=== PATIENT | female | born 1990 | race Caucasian/White ===

== ENCOUNTER 2024-10-19 01:57 | Outpatient (CLI) | payer BC, SELFPAY ==
[2024-10-19 10:40] LABS: Panorama Kit Sent via Fed Ex
[2024-10-19 10:50] LABS: Abs Immature Grans 0.03 10^3/uL (0.0-0.06); Absolute Basophil Count 0.01 10^3/uL (0.0-0.2); Absolute Eosinophil Count 0.01 10^3/uL (0.0-0.7); Absolute Lymphocyte Count 1.37 10^3/uL (1.2-3.4); Absolute Monocyte Count 0.46 10^3/uL (0.1-0.8); Absolute Neutrophil Count 6.51 10^3/uL (1.2-6.7); Basophils % 0.1 %; Eosinophils % 0.1 %; HCT 39.4 % (36.0-46.0); HGB 13.1 g/dL (11.2-15.7); Immature Grans % 0.4 %; Lymphocytes % 16.3 %; MCH 28.7 pg (27.0-33.0); MCHC 33.2 % (32.0-36.0); MCV 86 fL (80-95); MPV 10.1 fL (8.0-11.0); Monocytes % 5.5 %; Neutrophils % 77.6 %; Platelet Count 244 10^3/uL (130-400); RBC 4.57 10^6/uL (3.93-5.22); RDW 12.7 % (11.7-14.6); RDW-SD 39.4 fL; WBC 8.39 10^3/uL (4.4-10.8)
[2024-10-19 11:39] LABS: TSH (W/Ref FT4) 0.59 uIU/mL (0.36-3.74)
[2024-10-21 16:59] LABS: Thyrotropin Receptor Ab <1.10 IU/L
[2024-10-22 17:31] LABS: Specimen WB Whole Blood
[2024-11-04 18:29] LABS: Result Summary NEGATIVE; Specimen WB Whole Blood
== END 2024-10-19 01:58 | disposition home or self-care (01) ==
PROVIDERS: Advanced Practice Midwife; Visit Provider Student in an Organized Health Care Education/Training Program
DX: Z86.39 Personal history of other endocrine, nutritional and metabolic disease (principal); E89.0 Postprocedural hypothyroidism
CPT/HCPCS: 36415; 81220; 81222; 81329; 86850; 86900; 86901; 84235; 84443; 85025

== ENCOUNTER 2024-10-19 09:45 | Outpatient (REF) | payer BC, SELFPAY ==
--- NOTE | 2024-10-19 09:30 | PAPFT_PTH ---
PATIENT: Yuridia Martinez LOC: [facility] U#:[id number] AGE/SX: 34/F ROOM: RE10/19/[address]: Seema Bustamante : 1990 BED: DIS: 10/19/2024 SPEC #: [id number] RECD: 10/19/24 12:40 STATUS: RACHANA REQ #: [id number] ALEXANDRO: 10/19/24 09:[address]: Seema Bustamante DEPT: [facility] Cytology RECD BY: Jenn Jensen ENTERED: 10/19/24 12:40 SP TYPE: PAPFT OT DR: Unknown,Unknown Tissues: 1 - CX/ENDOCX FOR PAP SMEARS Procedures: PAP THIN PREP/UVM Screening HPV DNA PROBE Comments: [id number] (HPV 16 & 18/45)
[2024-10-19 11:12] LABS: *AMPHETAMINES SCREEN URINE Negative (Negative); *BARBITURATES SCREEN URINE Negative (Negative); *BENZODIAZEPINES SCREEN URINE Negative (Negative); Cannabinoids THC Negative (Negative); Cocaine Screen,Urine Negative (Negative); METHADONE URINE SCREEN Negative (Negative); OPIATES URINE SCREEN Negative (Negative); Tricyclic Antidepressants Negative (Negative)
[2024-10-23 11:40] LABS: Buprenorphine Negative ng/mL (Cutoff: 5.0); Norbuprenorphine Negative ng/mL (Cutoff: 2.5)
== END 2024-10-19 09:46 | disposition home or self-care (01) ==
LOC: LBN 09:45
PROVIDERS: Visit Provider Advanced Practice Midwife
DX: Z34.91 Encounter for supervision of normal pregnancy, unspecified, first trimester (principal)
CPT/HCPCS: 80307; 80348; 88142; 87086; 87624

== ENCOUNTER 2024-11-23 02:49 | Outpatient (CLI) | payer BC, SELFPAY ==
[2024-11-23 19:26] LABS: Lab Add On Test DONE
[2024-11-23 19:48] LABS: TSH (W/Ref FT4) 0.74 uIU/mL (0.36-3.74)
[2024-11-25 14:19] LABS: AFP 30.9 ng/mL; Cigarette smoking status non-Smoker; GA used in risk estimate Dates estimate; IVF Pregnancy Yes; Initial or repeat testing Initial testing; Insulin dependent diabetes No; Maternal Weight 170 lbs; Number of Fetuses 1; Physician Phone Number 802-748-7300; Prev Pregnancy w/NTD No; RECOMMENDED FOLLOW UP None.; Results Summary Normal risk
== END 2024-11-23 02:50 | disposition home or self-care (01) ==
LOC: LBO 02:49
PROVIDERS: Advanced Practice Midwife; Visit Provider Advanced Practice Midwife
DX: Z34.91 Encounter for supervision of normal pregnancy, unspecified, first trimester (principal); E05.00 Thyrotoxicosis with diffuse goiter without thyrotoxic crisis or storm
CPT/HCPCS: 36415; 82105; 84443

== ENCOUNTER 2024-12-25 13:29 | Outpatient (CLI) | payer BC, SELFPAY ==
[2024-12-25 15:06] LABS: TSH (W/Ref FT4) 0.31 uIU/mL (0.36-3.74)
[2024-12-25 15:25] LABS: FREE T4 1.33 ng/dL (0.76-1.46)
== END 2024-12-25 13:30 | disposition home or self-care (01) ==
LOC: LBO 13:29
PROVIDERS: Visit Provider Advanced Practice Midwife
DX: Z34.92 Encounter for supervision of normal pregnancy, unspecified, second trimester (principal); E05.00 Thyrotoxicosis with diffuse goiter without thyrotoxic crisis or storm
CPT/HCPCS: 36415; 84439; 84443

== ENCOUNTER 2025-01-22 01:42 | Outpatient (CLI) | payer BC, SELFPAY ==
[2025-01-22 14:39] LABS: TSH (W/Ref FT4) 0.25 uIU/mL (0.36-3.74)
[2025-01-22 15:02] LABS: FREE T4 1.23 ng/dL (0.76-1.46)
== END 2025-01-22 01:43 | disposition home or self-care (01) ==
LOC: LBO 01:42
PROVIDERS: Visit Provider Advanced Practice Midwife
DX: E05.00 Thyrotoxicosis with diffuse goiter without thyrotoxic crisis or storm (principal)
CPT/HCPCS: 36415; 84439; 84443

== ENCOUNTER 2025-02-12 01:42 | Outpatient (CLI) | payer BC, SELFPAY ==
[2025-02-12 14:01] LABS: HCT 34.5 % (36.0-46.0); HGB 11.5 g/dL (11.2-15.7); MCH 29.4 pg (27.0-33.0); MCHC 33.3 % (32.0-36.0); MCV 88 fL (80-95); MPV 9.8 fL (8.0-11.0); Platelet Count 278 10^3/uL (130-400); RBC 3.91 10^6/uL (3.93-5.22); RDW 12.4 % (11.7-14.6); RDW-SD 39.6 fL; WBC 9.78 10^3/uL (4.4-10.8)
[2025-02-12 14:18] LABS: Glucose,1 Hr (Glucola) 98 mg/dL (80-140)
[2025-02-12 14:33] LABS: TSH (W/Ref FT4) 0.67 uIU/mL (0.36-3.74)
== END 2025-02-12 01:43 | disposition home or self-care (01) ==
LOC: LBO 01:43
PROVIDERS: Visit Provider Advanced Practice Midwife
DX: E05.00 Thyrotoxicosis with diffuse goiter without thyrotoxic crisis or storm (principal); Z34.93 Encounter for supervision of normal pregnancy, unspecified, third trimester; Z3A.28 28 weeks gestation of pregnancy
CPT/HCPCS: 36415; 82950; 85027; 84443

== ENCOUNTER 2025-03-12 00:59 | Outpatient (CLI) | payer BC, SELFPAY ==
[2025-03-12 15:09] LABS: TSH (W/Ref FT4) 0.51 uIU/mL (0.36-3.74)
== END 2025-03-12 01:00 | disposition home or self-care (01) ==
LOC: LBO 00:59
PROVIDERS: Visit Provider Advanced Practice Midwife
DX: Z34.93 Encounter for supervision of normal pregnancy, unspecified, third trimester (principal)
CPT/HCPCS: 36415; 84443

== ENCOUNTER 2025-04-09 17:58 | Outpatient (REF) | payer BC, SELFPAY | END 2025-04-09 17:59 | disposition home or self-care (01) | LOC: LBN 17:58 | PROVIDERS: Visit Provider Advanced Practice Midwife | DX: Z34.93 Encounter for supervision of normal pregnancy, unspecified, third trimester (principal) | CPT/HCPCS: 87081 ==

== ENCOUNTER 2025-04-16 15:02 | Outpatient (CLI) | payer BC, SELFPAY ==
[2025-04-16 13:53] LABS: TSH (W/Ref FT4) 0.94 uIU/mL (0.36-3.74)
== END 2025-04-16 15:03 | disposition home or self-care (01) ==
LOC: LBO 15:02
PROVIDERS: Visit Provider Advanced Practice Midwife
DX: Z34.93 Encounter for supervision of normal pregnancy, unspecified, third trimester (principal); E05.00 Thyrotoxicosis with diffuse goiter without thyrotoxic crisis or storm
CPT/HCPCS: 36415; 84443

== ENCOUNTER 2025-04-30 13:29 | Outpatient (CLI) | payer BC, SELFPAY ==
[2025-04-30 13:35] VITALS: BP 120/71; PULSE 71; TEMP 37.2
[2025-04-30 13:51] VITALS: BP 120/71; PULSE 71
--- NOTE | 2025-04-30 15:12 | W.OBNST ---
Date of service: 04/30/25 Time of Service: 15:12 NST Evaluation Reason for NST Reasons for Nonstress Test: OTHER, SEE COMMENT Reason for NST Other: elevated B/P in office Gestational Age Gestational Age in Weeks and Days: 39 Weeks and 0Days Test and Monitor Explained Test/Monitor Explained: Test Explained, Monitor Explained and Patient Verbalized Understanding Vital Signs Blood Pressure: 120/71 Pulse: 71 Temperature: 99.0 F Weight: 193 lb NST Information Date on Monitor: 04/30/25 Time on Monitor: 13:27 Date off Monitor: 04/30/25 Time off Monitor: 14:05 Total Time on Monitor: 38 NST Interventions: None NST Evaluation Patient States Movement: Present FHR Baseline: 125 Variability: Moderate 6-25 bpm Accelerations: 15x15 Decelerations: None NST Results: Reactive Note Ultrasound Done: N/A. NST Note NST Reviewed and Verified by: Ghada Allred
[2025-04-30 15:13] VITALS: BP 120/71; PULSE 71; TEMP 37.2
== END 2025-04-30 14:10 ==
LOC: BCD 13:29 → OBS 13:34
PROVIDERS: Visit Provider Advanced Practice Midwife
DX: R03.0 Elevated blood-pressure reading, without diagnosis of hypertension (principal); Z3A.39 39 weeks gestation of pregnancy
CPT/HCPCS: 59025

== ENCOUNTER 2025-05-14 07:17 | Outpatient (CLI) | payer BC, SELFPAY ==
[2025-05-14 13:18] VITALS: BP 136/90; PULSE 78; TEMP 36.7
[2025-05-14 13:35] VITALS: BP 136/90; PULSE 78
[2025-05-14 13:44] VITALS: BP 133/73; PULSE 64
--- NOTE | 2025-05-14 20:55 | W.OBNST ---
Date of service: 05/14/25 Time of Service: 20:57 NST Evaluation Reason for NST Reasons for Nonstress Test: POSTDATES Gestational Age Gestational Age in Weeks and Days: 41 Weeks and 0Days Test and Monitor Explained Test/Monitor Explained: Test Explained, Monitor Explained and Patient Verbalized Understanding Vital Signs Blood Pressure: 136/90 Pulse: 78 Temperature: 98.1 F Weight: 193 lb NST Information Date on Monitor: 05/14/25 Time on Monitor: 13:20 Date off Monitor: 05/14/25 Time off Monitor: 13:46 Total Time on Monitor: 26 NST Interventions: PO Hydration NST Evaluation Patient States Movement: Present FHR Baseline: 135 Variability: Moderate 6-25 bpm Accelerations: 15x15 Decelerations: None NST Results: Reactive Note Ultrasound Done: N/A. NST Note Note: Yuridia is here for post dates testing. NST reactive. OK by Dr. Robison was 5.4. IOL discussed and Yuridia agrees. SVE - 0 /50/-1/post. She will return at 7 pm for cervical ripening., NST Reviewed and Verified by: Mary Jane Norris
[2025-05-14 20:58] VITALS: BP 136/90; PULSE 78; TEMP 36.7
--- NOTE | 2025-05-14 21:44 | W.OBNST ---
Date of service: 05/14/25 Time of Service: 21:46 NST Evaluation Reason for NST Reasons for Nonstress Test: POSTDATES Gestational Age Gestational Age in Weeks and Days: 41 Weeks and 0Days Test and Monitor Explained Test/Monitor Explained: Test Explained, Monitor Explained and Patient Verbalized Understanding Vital Signs Blood Pressure: 136/90 Pulse: 78 Temperature: 98.1 F Weight: 193 lb NST Information Date on Monitor: 05/14/25 Time on Monitor: 13:20 Date off Monitor: 05/14/25 Time off Monitor: 13:46 Total Time on Monitor: 26 NST Interventions: PO Hydration NST Evaluation Patient States Movement: Present FHR Baseline: 135 Variability: Moderate 6-25 bpm Accelerations: 15x15 Decelerations: None NST Results: Reactive Note Ultrasound Done: N/A. NST Note Note: Post dates testing. NST reactive. SVE 0/50/-1/post. Discussed IOL and Yuridia and her partner agree. She will return at 1900 for cervical ripening NST Reviewed and Verified by: Mary Jane Norris
[2025-05-14 21:46] VITALS: BP 136/90; PULSE 78; TEMP 36.7
== END 2025-05-14 14:48 | disposition other institution (70) ==
LOC: BCD 07:22 → OBS 13:12
PROVIDERS: Visit Provider Advanced Practice Midwife
DX: O48.0 Post-term pregnancy (principal); Z3A.41 41 weeks gestation of pregnancy
CPT/HCPCS: 59025

== ENCOUNTER 2025-05-14 18:11 | Inpatient (IN) | payer BC, SELFPAY ==
[2025-05-14 19:48] VITALS: PULSE 103; RESP 16; O2SAT 98
--- NOTE | 2025-05-14 20:41 | W.PM.OBHPL1 ---
Date of service: 05/14/25 Time of Service: 20:41 Assessment and Plan Assessment and plan (1) Encounter for induction of labor: Status: Acute Assessment and plan: Admit to Center and routine admission labs. Comfort measures. Dr. Robison is aware of admission. (2) Post-dates : Status: Acute Assessment and plan: Reactive NST. Will plan cervical ripening with misoprostol when staffing allows. rest with vistaril offered PRN. OB-HPI Labor/Delivery History of Present Illness Reason for Visit: post dates Chief Complaint: Scheduled Induction of Labor Indication for Induction: Post Date. CATARINO Calculator Estimated Delivery Date Method Current WG Current Estimate 05/07/25 Conception 41w 0d Other Estimates 04/23/25 LMP (Certain) 43w 0d 05/07/25 Ultrasound #2 41w 0d Comments: Yuridia had OK checked today by Dr. Robison and it was 5 cms. IOL offered and Yuridia and her partner wish to proceed. After her arrival, induction was not possible due to staffing on the unit and impending delivery. History of Present Expected Delivery Route/Plan - CNM FOB - Eleonora Medina (first child together) BB no circ Desires use of tub, unmedicated GBS POSITIVE- Prophylaxis discussed with Yuridia. Specific Issues/Plan 1. Infertility (unexplained), ICSI IVF 5-day embryo transfer at [facility] Repro, Baby ASA 12 wks, Level 2 @ [facility] 12/21 2. cfDNA low risk male, CF & SMA carrier negative, AFP- normal risk 3. 5- P + (due to mother's hx ETOH). Initial UDS negative; will not order 28 wk UDS as this is out of pocket 4. Grave's disease post thyroidectomy on Levo. TSH qtrimester. Initial TSH=0.59; 4a. 21 wks TSH=0.31 & Free T4=1.33 4b. [facility] Endo requests monthly- 01/22- TSH- 0.25, FT4 1.23 4c. 02/12- TSH 0.67, repeat at 32 weeks- 0.51 PFSH All Active Problems (Updated 05/14/25 @ 20:48 by Mary Jane Norris CNM) Post-dates (Acute) Encounter for induction of labor (Acute) (Acute) resulting from in-vitro fertilization (Acute) day 5 embryo transfer date 08/19/24 Graves disease (Acute) Medical History ASCUS with positive high risk HPV 2018 NIL 2019 Surgical History H/O thyroidectomy History of surgical procedure on mouth 2010 Family History (Updated 10/19/24 @ 09:03 by Seema Bustamante CNM) Mother No problems noted. 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) [employer] ([employer]) Pets and animals: Yes Pets and animals: dog(s) Sexually active: Yes Do you think of yourself as: straight/heterosexual Current gender identity: female What type of physical activity do you participate in: regular exercise Duration: 15-30 minutes/day Frequency: 3-4 times per week Special sarah needs: No Agree to transfusion: No Seatbelt use: always Do you feel safe at home: Yes Victim of physical abuse: No Victim of emotional abuse: No Female Reproductive History Menstrual Duration of menses: 6-7 days control method: none History History 1 Para 0 Hx # Term Pregnancies 0 Multiple births 0 Hx # Pregnancies 0 Ectopic pregnancies 0 AB induced 0 Hx Number of Living Children 0 AB spontaneous 0 Meds Allergies and Home Medications Allergies Allergy/AdvReac Type Severity Reaction Status Date / Time Opioids - Morphine Analogues AdvReac Nausea Verified 05/07/25 12:40 Home Medications ?Medication ?Instructions ?Recorded ?Confirmed ?Type prenat.vits,melisa,[id number] 1 tab PO DAILY 10/10/21 05/14/25 History cholecalciferol (vitamin D3) 25 25 mcg PO DAILY 10/19/24 05/14/25 History mcg (1,000 unit) capsule aspirin 81 mg tablet,delayed 162 mg (2 x 81 mg) PO DAILY #90 11/23/24 05/14/25 Rx release tabs levothyroxine 88 mcg tablet 163.4 mcg (1.8568 x 88 mcg) PO 02/12/25 05/14/25 Rx (Unithroid) DAILY #90 tabs calcium carbonate (Tums) 200 mg PO BID PRN 02/26/25 05/14/25 History loratadine 10 mg capsule (Allergy 10 mg PO DAILY PRN 02/26/25 05/14/25 History Relief (loratadine)) pyridoxine (vitamin B6) 50 mg 50 mg PO DAILY PRN 02/26/25 05/14/25 History tablet (Vitamin B-6) Exam Physical Exam Vital signs: Pulse Resp Pulse Ox 103 H 16 98 05/14/25 19:48 05/14/25 19:48 05/14/25 19:48 Vital Signs Reviewed: Yes Constitutional Constitutional: no acute distress Detailed Labor and Delivery Exam Dilation: 0 Effacement (%): 50 station: -1 Cervix position: posterior Consistency: soft Ontiveros Score: Cervical Points Exam 0 1 2 3 Dilation Closed 1-2cm 3-4 cm 5-6cm Effacement 0-30% 40-50% 60-70% 80% Consistency Firm Medium Soft Station -3 -2 -1,0 +1,+2 Position Posterior Mid Anterior Amniotic Membrane Status: Intact Monitor Mode: External Contraction Frequency(min): occasional Contraction Duration(sec): 60 Contraction Intensity: Mild Fetus A Heart Rate Baseline: 130 Monitor Accelerations: 15 X 15 Monitor Decelerations: None Variability: Moderate (6-25 BPM) Presentation: Cephalic Categories: Category I Est. Weight: 9 lb HEENT Exam HEENT Exam: Normal Respiratory Exam Respiratory Exam: Normal Cardiovascular Exam Cardiovascular Exam: Normal Abdominal Exam Abdominal Exam: Normal Exam Exam: Normal Extremities Exam Extremities Exam: Normal Skin Exam Skin Exam: Normal Psychiatric Exam Psychiatric Exam: Normal Risk Assessment Risk for Shoulder Dystocia Historical/Initial OB: NEGATIVE FOR: Pelvic Abnormality, Pre- BMI>30, Previous Shoulder Dystocia or Previous Macrosomia 36 Weeks: NEGATIVE FOR: Current Gestational DM, EFW>4500gms or Maternal Weight Gain>40lbs 40 Weeks: POSTIVE FOR: Post Dates; NEGATIVE FOR: EFW> 4500 gms or Maternal Weight Gain >40lb Delivery Plan @ 36wks: Risk for Pre-Eclampsia Date Initiated/Initials: 10/19/24 RG Yes, if one or more: NEGATIVE FOR: Hx Pre-E/Gest HTN, Chronic HTN, Multiple Gestation, Pre-gestational DM, Renal Disease, Systemic Lupus or APA Syndrome Yes, if 2 or more: POSITIVE FOR: Nulliparity; NEGATIVE FOR: Age>= 35 yrs, >10yr btwn pregnancies, BMI>30, ethinicty, Mother/Sister w/ Pre-E or Previous IUGR Risk for Post- Hemorrhage Initial: NEGATIVE FOR: Multiple Gestation, Previous PPH, Known Clotting Deficiency, Grand Multiparity or Anticoagulation 36 Weeks: NEGATIVE FOR: Anemia, hgb<10, Low platelets(thrombocytopenia), Gestational HTN or Pre-E, Polyhydraminios or EFW>4500gms 40 Weeks: NEGATIVE FOR: Anemia, hgb<10, Low platelets (thrombocytopenia), Gestation HTN or Pre-E, Polyhydraminios or EFW>4500gms At Risk?: No Counseled re: Active Management: Yes Risks Reviewed Risks Reviewed Upon Admission: Yes
[2025-05-14 21:23] LABS: HCT 34.1 % (36.0-46.0); HGB 11.6 g/dL (11.2-15.7); MCH 29.7 pg (27.0-33.0); MCHC 34.0 % (32.0-36.0); MCV 87 fL (80-95); MPV 10.5 fL (8.0-11.0); Platelet Count 217 10^3/uL (130-400); RBC 3.90 10^6/uL (3.93-5.22); RDW 13.0 % (11.7-14.6); RDW-SD 40.9 fL; WBC 13.36 10^3/uL (4.4-10.8)
[2025-05-15] VITALS (50 sets, daily range): BP systolic 114–140; BP diastolic 59–92; PULSE 0–123; RESP 16–18; TEMP 36.6–36.9; O2SAT 99
[2025-05-15] MEDS: hydrOXYzine PAMOATE 25 MG CAP 50 MG PO (01:55)
--- NOTE | 2025-05-15 03:06 | NUR.NOTE ---
Nursing Note: FHR and maternal vital signs only while awake per carlitos renteria CNM verbal.
[2025-05-15] MEDS: Levothyroxine 88 MCG TAB 176 MCG PO (08:02)
[2025-05-15] MEDS: miSOPROStol 25 MCG TAB VG ×2 (09:57→14:39)
--- NOTE | 2025-05-15 11:31 | W.PM.OBNL1 ---
Date of service: 05/15/25 Time of Service: 10:30 Informed Consent Informed Consent: Induction of Labor and Risk,Benefits,Alternatives Discussed Contractions Monitor Mode: External Contraction Frequency(min): 5 Contraction Duration(sec): 45-60 Intensity: Mild Fetus A Monitor: External (US) Heart Rate Baseline: 135 Presentation: Cephalic Variability: Moderate (6-25 BPM) Categories: Category I FHR Rhythm: Regular Accelerations: 15 X 15 Decelerations: None Amniotic Membrane Status: Intact Assessment and Plan Assessment and plan (1) Encounter for induction of labor: Start date: 05/15/25 Start time: 10:00 Status: Acute Assessment and plan: # 35-year-old at 41+0 here for IOL iso IVF . Admission H/H 11.6/34. VSS. # Labor: IOL deferred last night 2/2 unit census. Discussed IOL methods, answered all questions. Patient amenable to starting with Miso. Dose #1 placed at 10:00. Will consider CRB with dose of next Miso. # Fetus: Cat 1 # Pain: Patient desires unmedicated , hydrotherapy. Open to epidural if needed. Will move to Room 300 once available. # Problems: - GBS+: PCN PPx with CRB or active labor - Hyperthyroidism: TSH stable throughout . # Back-up MD Robison aware of patient on the unit. # Anticipate . (2) resulting from in-vitro fertilization: Status: Acute (3) Graves disease: Status: Acute (4) GBS (group B Streptococcus carrier), +RV culture, currently : Status: Acute Objective Abnormal lab results 05/14/25 Range/Units 21:10 WBC 13.36 H (4.4-10.8) 10^3/uL RBC 3.90 L (3.93-5.22) 10^6/uL Hct 34.1 L (36.0-46.0) % Temp Pulse Resp BP Pulse Ox 97.9 F 78 16 114/82 98 05/15/25 01:05 05/15/25 08:04 05/15/25 01:05 05/15/25 08:04 05/14/25 19:48 Laboratory Results WBC 13.36 10^3/uL (4.4-10.8) H 05/14/25 21:10 RBC 3.90 10^6/uL (3.93-5.22) L 05/14/25 21:10 Hgb 11.6 g/dL (11.2-15.7) 05/14/25 21:10 Hct 34.1 % (36.0-46.0) L 05/14/25 21:10 MCV 87 fL (80-95) 05/14/25 21:10 MCH 29.7 pg (27.0-33.0) 05/14/25 21:10 MCHC 34.0 % (32.0-36.0) 05/14/25 21:10 RDW 13.0 % (11.7-14.6) 05/14/25 21:10 Plt Count 217 10^3/uL (130-400) 05/14/25 21:10 MPV 10.5 fL (8.0-11.0) 05/14/25 21:10 ABO/Rh O Positive 05/14/25 21:10 Antibody Screen NEGATIVE 05/14/25 21:10 Vital Signs Reviewed: Yes Subjective Patient Reports: No new Complaints Interval history since last seen: Yuridia is a 35-year-old at 41+1 admitted for induction of labor iso late-term . is otherwise complicated by hyperthyroidism, s/p thyroidectomy and positive GBS status. She is supported by her Eleonora. She was admitted on 05/14 for ripening, which was deferred due to unit census. She was able to get some rest with Vistaril. Yuridia is amenable to starting Misoprostol this morning after breakfast. She is feeling in her usual state of health. Denies contractions, VB, or LOF. Endorses normal movement. Per Dr. Robison, cervix yesterday was . Interventions Induction Indication: Post Date, Type of Induction: Misoprostol administration: Vaginal, Results Hemoglobin/Hematocrit: Hgb 11.6 g/dL (11.2-15.7) 05/14/25 21:10 Hct 34.1 % (36.0-46.0) L 05/14/25 21:10 Abnormal Lab Findings: Abnormal Labs 05/14/25 21:10 WBC 13.36 H RBC 3.90 L Hct 34.1 L
--- NOTE | 2025-05-15 14:42 | W.PM.OBNL1 ---
Date of service: 05/15/25 Time of Service: 14:52 Informed Consent Informed Consent: Induction of Labor and Risk,Benefits,Alternatives Discussed Pelvic Exam Dilation: 1 Effacement (%): 50 station: -2 Cervix Position: mid Consistency: medium Vaginal Exam Presentation: Cephalic Contractions Monitor Mode: External Contraction Frequency(min): 3 Contraction Duration(sec): 60 Intensity: Mild Fetus A Monitor: External (US) Heart Rate Baseline: 135 Presentation: Cephalic Variability: Moderate (6-25 BPM) Categories: Category I FHR Rhythm: Regular Characteristics: Normal Accelerations: 15 X 15 Decelerations: None Assessment and Plan Assessment and plan (1) Encounter for induction of labor: Status: Acute Assessment and plan: # Labor: Pt undergoing cervical ripening, now s/p 2nd dose Miso at 14:30. Cervix now 1/50/-2, compared to 0/50/posterior yesterday. Reviewed with patient that CRB placement would be easily done at this point and it was decided that at the time of next Miso dose, another SVE would be done; if still 1 cm, will opt for CRB to be placed at that time. # Fetus: Cat 1 # Pain: Coping well with cramping. # GBS+: PCN with CRB or active labor. # Anticipate (2) Post-dates : Status: Acute (3) GBS (group B Streptococcus carrier), +RV culture, currently : Status: Acute (4) resulting from in-vitro fertilization: Status: Acute (5) Graves disease: Status: Acute Objective Abnormal lab results 05/14/25 Range/Units 21:10 WBC 13.36 H (4.4-10.8) 10^3/uL RBC 3.90 L (3.93-5.22) 10^6/uL Hct 34.1 L (36.0-46.0) % Temp Pulse Resp BP Pulse Ox 97.9 F 80 16 123/78 98 05/15/25 01:05 05/15/25 13:45 05/15/25 01:05 05/15/25 13:45 05/14/25 19:48 Laboratory Results WBC 13.36 10^3/uL (4.4-10.8) H 05/14/25 21:10 RBC 3.90 10^6/uL (3.93-5.22) L 09/12/25 21:10 Hgb 11.6 g/dL (11.2-15.7) 05/14/25 21:10 Hct 34.1 % (36.0-46.0) L 05/14/25 21:10 MCV 87 fL (80-95) 05/14/25 21:10 MCH 29.7 pg (27.0-33.0) 05/14/25 21:10 MCHC 34.0 % (32.0-36.0) 05/14/25 21:10 RDW 13.0 % (11.7-14.6) 05/14/25 21:10 Plt Count 217 10^3/uL (130-400) 05/14/25 21:10 MPV 10.5 fL (8.0-11.0) 05/14/25 21:10 ABO/Rh O Positive 05/14/25 21:10 Antibody Screen NEGATIVE 05/14/25 21:10 Vital Signs Reviewed: Yes Subjective Patient Reports: New Complaints Interval history since last seen: Since placement of the first dose of Miso, Yuridia has been feeling more cramping. Eleonora supportive at bedside. Interventions Induction Indication: Post Date, Type of Induction: Misoprostol administration: Vaginal and Cervical Ripening, Results Hemoglobin/Hematocrit: Hgb 11.6 g/dL (11.2-15.7) 05/14/25 21:10 Hct 34.1 % (36.0-46.0) L 05/14/25 21:10 Abnormal Lab Findings: Abnormal Labs 05/14/25 21:10 WBC 13.36 H RBC 3.90 L Hct 34.1 L
--- NOTE | 2025-05-15 18:48 | W.PM.OBNL1 ---
Date of service: 05/15/25 Time of Service: 18:39 Informed Consent Informed Consent: Induction of Labor and Risk,Benefits,Alternatives Discussed Pelvic Exam Dilation: 1 Effacement (%): 90 station: -2 Cervix Position: mid Consistency: soft Vaginal Exam Presentation: Cephalic Nitrazine: Positive Contractions Monitor Mode: External Contraction Frequency(min): 2-4 Contraction Duration(sec): 50-80 Intensity: Mild/Moderate Fetus A Monitor: External (US) Heart Rate Baseline: 135 Presentation: Cephalic Variability: Moderate (6-25 BPM) Categories: Category I FHR Rhythm: Regular Characteristics: Normal Accelerations: 15 X 15 Decelerations: None Amniotic Membrane Status: Ruptured Assessment and Plan Assessment and plan (1) Amniotic fluid leaking: Start date: 05/15/25 Status: Acute (2) Encounter for induction of labor: Status: Acute Assessment and plan: - 35-year-old at 41+1 here for IOL, making cervical change. - Labor: s/p 2 doses PV Miso, SROM to pink-tinged fluid around 17:[address] IV and initiate Pitocin. Titrate per unit protocol. - Pain: Well-managed using own inner resources - Fetus: Cat 1 - GBS+ with confirmation of SROM: Will place IV now and initiate PCN ppx. - IVF : Caution in 3rd stage with delivery of the placenta - Anticipate tomorrow morning. (3) Post-dates : Status: Acute (4) GBS (group B Streptococcus carrier), +RV culture, currently : Status: Acute (5) resulting from in-vitro fertilization: Status: Acute Objective Abnormal lab results 05/14/25 Range/Units 21:10 WBC 13.36 H (4.4-10.8) 10^3/uL RBC 3.90 L (3.93-5.22) 10^6/uL Hct 34.1 L (36.0-46.0) % Temp Pulse Resp BP Pulse Ox 97.9 F 66 16 133/84 98 05/15/25 18:20 05/15/25 18:20 05/15/25 18:20 05/15/25 18:20 05/14/25 19:48 Laboratory Results WBC 13.36 10^3/uL (4.4-10.8) H 05/14/25 21:10 RBC 3.90 10^6/uL (3.93-5.22) L 05/14/25 21:10 Hgb 11.6 g/dL (11.2-15.7) 05/14/25 21:10 Hct 34.1 % (36.0-46.0) L 05/14/25 21:10 MCV 87 fL (80-95) 05/14/25 21:10 MCH 29.7 pg (27.0-33.0) 05/14/25 21:10 MCHC 34.0 % (32.0-36.0) 05/14/25 21:10 RDW 13.0 % (11.7-14.6) 05/14/25 21:10 Plt Count 217 10^3/uL (130-400) 05/14/25 21:10 MPV 10.5 fL (8.0-11.0) 05/14/25 21:10 ABO/Rh O Positive 05/14/25 21:10 Antibody Screen NEGATIVE 05/14/25 21:10 Vital Signs Reviewed: Yes Subjective Patient Reports: New Complaints Interval history since last seen: Yuridia reports contractions have been getting stronger. Reports she heard a pop around 5:35 p.m., sometime thereafter she started to notice some trickling. Interventions Induction Indication: Post Date, Type of Induction: Misoprostol administration: Vaginal, Pitocin and Cervical Ripening, Results Hemoglobin/Hematocrit: Hgb 11.6 g/dL (11.2-15.7) 05/14/25 21:10 Hct 34.1 % (36.0-46.0) L 05/14/25 21:10 Abnormal Lab Findings: Abnormal Labs 05/14/25 21:10 WBC 13.36 H RBC 3.90 L Hct 34.1 L
[2025-05-15] MEDS: Penicillin G POT. 5,000,000 UNITS in Normal Saline 100 ML 200 UNITS IVPB (21:00)
[2025-05-15] MEDS: Lactated Ringers 1,000 ML 125 ML IV (21:00)
--- NOTE | 2025-05-15 22:47 | W.PM.OBNL1 ---
Date of service: 05/15/25 Time of Service: 22:47 Informed Consent Informed Consent: Induction of Labor and Risk,Benefits,Alternatives Discussed Pelvic Exam Dilation: 8 Effacement (%): 100 station: -1 Cervix Position: anterior Consistency: soft Vaginal Exam Presentation: Cephalic Nitrazine: Positive Contractions Monitor Mode: External Contraction Frequency(min): 2-4 Contraction Duration(sec): 50-80 Intensity: Moderate/Strong Fetus A Monitor: External (US) Heart Rate Baseline: 145 Presentation: Cephalic Variability: Moderate (6-25 BPM) Categories: Category I FHR Rhythm: Regular Characteristics: Normal Accelerations: 15 X 15 Decelerations: None Assessment and Plan Assessment and plan (1) Encounter for induction of labor: Status: Acute Assessment and plan: - 35-year-old at 41+1 here for IOL, in active labor. - Labor: s/p 2 doses PV Miso, SROM x 5 hours. Pitocin not initiated as patient entered active labor after 2nd dose of Miso & SROM alone. - Pain: Well-managed using her own inner resources. Supported by Eleonora. Patient considering getting into the tub. - Fetus: Cat 1 - GBS+ with confirmation of SROM: s/p 1 dose PCN. Of note, SROM confirmed just prior to change of shift. Initiation of abx delayed for this and that ultrasound was needed for IV placement. - IVF : Caution in 3rd stage with delivery of the placenta - Anticipate tomorrow morning. (2) Post-dates : Status: Acute (3) GBS (group B Streptococcus carrier), +RV culture, currently : Status: Acute (4) Amniotic fluid leaking: Status: Acute Objective Temp Pulse Resp BP Pulse Ox 98.2 F 78 18 127/84 99 05/15/25 20:00 05/15/25 22:43 05/15/25 20:00 05/15/25 20:00 05/15/25 20:00 Laboratory Results WBC 13.36 10^3/uL (4.4-10.8) H 05/14/25 21:10 RBC 3.90 10^6/uL (3.93-5.22) L 05/14/25 21:10 Hgb 11.6 g/dL (11.2-15.7) 05/14/25 21:10 Hct 34.1 % (36.0-46.0) L 05/14/25 21:10 MCV 87 fL (80-95) 05/14/25 21:10 MCH 29.7 pg (27.0-33.0) 05/14/25 21:10 MCHC 34.0 % (32.0-36.0) 05/14/25 21:10 RDW 13.0 % (11.7-14.6) 05/14/25 21:10 Plt Count 217 10^3/uL (130-400) 05/14/25 21:10 MPV 10.5 fL (8.0-11.0) 05/14/25 21:10 ABO/Rh O Positive 05/14/25 21:10 Antibody Screen NEGATIVE 05/14/25 21:10 Vital Signs Reviewed: Yes Subjective Patient Reports: New Complaints Interval history since last seen: Yuridia reports contractions continue to intensify, has been having lots of bloody show. Trying many positions. Interventions Pain Management Interventions: Coping Well, No Interventions needed and Comfort Measures. Results Hemoglobin/Hematocrit: Hgb 11.6 g/dL (11.2-15.7) 05/14/25 21:10 Hct 34.1 % (36.0-46.0) L 05/14/25 21:10 Abnormal Lab Findings: Abnormal Labs 05/14/25 21:10 WBC 13.36 H RBC 3.90 L Hct 34.1 L
[2025-05-16] VITALS (66 sets, daily range): BP systolic 111–167; BP diastolic 55–85; PULSE 0–147; RESP 14–18; TEMP 36.8–37.8; O2SAT 97–98
[2025-05-16] MEDS: Methylergonovine 0.2 MG/ML VIAL ×2 (03:35→06:31)
[2025-05-16] MEDS: Lidocaine 1% Multi-Dose 20 ML VIAL IJ (03:50)
[2025-05-16] MEDS: miSOPROStol 200 MCG TAB 800 MCG SL (04:00)
[2025-05-16] MEDS: Lidocaine 2% Jelly 6 ML SYR (04:00)
--- NOTE | 2025-05-16 04:10 | OBCE_ITS ---
Date of service: 05/16/25 Time of Service: 04:10 Assessment and Plan Assessment and plan (1) Third degree laceration of perineum, type 3a: Status: Acute History of Present Illness History of Present Illness Chief Complaint: Evaluation of perineal laceration, postdelivery Narrative: Kindly asked to see this patient by Dimple Leavitt CNM. Patient was status postnormal spontaneous vaginal after labor induction at 41 weeks and 1 day. Indications for delivery were post dates and assisted reproductive technology. She had a normal spontaneous vaginal with viable male infant visually, large for gestational age. She said that. She was noted to have a midline laceration. On examination, her perineal laceration was noted to start at the mid portion of the posterior aspect of the vagina and extends through the perineum. There was extension of the anterior portion of the rectal sphincter so ultimately stage IIIa perineal laceration. Patient also had a slight increase in vaginal bleeding throughout the postdelivery phase. During the process, she received Pitocin at the subsequent bolus. She had Methergine delivered IM, fundal massage, misoprostol, 800 mcg placed rectally. Once bleeding was under better control, repair of her vaginal laceration was performed. She had received topical lidocaine, followed by 1% lidocaine by injection. 3-0 Vicryl was used to reapproximate ends bolstering the anterior portion of the rectus muscle. The remainder of the repair was performed in usual fashion with repair of the vaginal mucosa followed by the deeper perineal spaces, followed by perineal mucosa. During placement of the nasal Postel, with rectal examination, sphincter and vaginal mucosa is intact. Repair achieved hemostasis, and appropriate structural and cosmetic result. All findings were discussed with the patient, and her . Subsequent instructions and care will be provided by our midwives and nursing staff. Patient did have almost 1500 cc. See delivery note for the remainder of her care. Consults Consult date: 05/16/25 Requesting physician: Dimple Leavitt [facility] All Active Problems (Updated 05/16/25 @ 04:21 by Sparkle Robison DO) Third degree laceration of perineum, type 3a (Acute) Repaired, usual fashion, Appropriate hemostasis and cosmetic effect. 05/16/25 Amniotic fluid leaking (Acute) GBS (group B Streptococcus carrier), +RV culture, currently (Acute) Post-dates (Acute) Encounter for induction of labor (Acute) (Acute) resulting from in-vitro fertilization (Acute) day 5 embryo transfer date 08/19/24 Graves disease (Acute) Medical History ASCUS with positive high risk HPV 2018 NIL 2019 Surgical History H/O thyroidectomy History of surgical procedure on mouth 2010 Family History (Updated 10/19/24 @ 09:03 by Seema Bustamante CNM) Mother No problems noted. 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) [employer] ([employer]) Pets and animals: Yes Pets and animals: dog(s) Sexually active: Yes Do you think of yourself as: straight/heterosexual Current gender identity: female What type of physical activity do you participate in: regular exercise Duration: 15-30 minutes/day Frequency: 3-4 times per week Special sarah needs: No Agree to transfusion: No Seatbelt use: always Do you feel safe at home: Yes Victim of physical abuse: No Victim of emotional abuse: No Female Reproductive History Menstrual Duration of menses: 6-7 days control method: none History History 2 1 Para 0 Hx # Term Pregnancies 0 Multiple births 0 Hx # Pregnancies 0 Ectopic pregnancies 0 AB induced 0 Hx Number of Living Children 0 AB spontaneous 0 Results Last Vital Signs Temp 98.2 F 05/15/25 20:00 Pulse 103 H 05/16/25 04:08 Resp 18 05/15/25 20:00 BP 155/81 H 05/16/25 04:08 Pulse Ox 99 05/15/25 20:00 Labs 05/14/25 21:10
--- NOTE | 2025-05-16 04:19 | OBVDS_ITS ---
Date of service: 05/16/25 Time of Service: 04:20 OB Labor/ Delivery Information Baby A Delivery Delivery Method: Spontaneaous Presentation: Cephalic Cephalic Position: Vertex Vertex Position: Left Occipital Anterior Breech Position: N/A Cord Description-Baby A: 3 Vessels Cord Description Comment: Eccentric cord insertion Amniotic Fluid: Clear Quantitative Blood Loss: 1500 Delivery Outcome: Liveborn Infant Transferred: Remains with Mother Providers Doctor: Sparkle Robison Nurse Geophysical Prospector: Dimple Leavitt Specimen Processor: Daphne Kang Nurse: Anila Verdugo Nurse: Mariah Simpson Labor/Delivery Information Number of Babies in Womb: 1 Group Beta Strep: Positive Antibiotics Administered: Yes Number of Doses of Antibiotics: 2 Rubella Status: Immune Blood Type: O+ Varicella Immunity: Immune Maternal Complications: None Shoulder Dystocia: No Note: Yuridia is a 35-year-old G1 now P1001 who presented to the Center on 05/14 for IOL iso late-term . complicated by IVF , Hx of Graves Disease, and GBS+ status. She slept overnight while awaiting for improvement of the unit census. On 05/15, she received 2 doses of Misoprostol PV, had SROM to clear fluid and then progressed on her own to complete dilation on 05/16. She received adequate GBS prophylaxis prior to initiation of the 2nd stage. Initially, she pushed in the tub, however contractions spaced. She moved from the tub to the bed. Contractions continued to be spaced and Pitocin was initiated, titrated to a max dose of 8 mU/min. Using her own inner resources and Nitrous Oxide at times, she achieved the delivery of a viable male Loic. Nuchal x 1 reduced at the perineum. Transverse shoulders were a tight squeeze, however without dystocia. No meconium. Overall Cat 1 tracing throughout first and second stages. The stunned was brought to maternal chest where he transitioned with drying and stimulation. APGARS 6/8. Delayed cord clamping was purposefully performed, clamped x 2 by the CNM and cut by the FOBEleonora. The placenta delivered easily, appeared intact with 3VC. The vagina and perineum were inspected and a deep midline sulcal and perineal lacerations were noted. Dr. Sparkle Robison was already in-house and was asked to come to the bedside for evaluation. 3a lac identified and lacerations were repaired with 3-[address] Robison. Additionally, Yuridia had uterine atony and was given double strength Pitocin, Methergine and 800 mcg Misoprostol ME. Pt had I/O cath for 450 mL urine (see Dr. Robison's consult note). Fundus was firm with multiple uterotonics, I/O cath, and massage. QBL 1,500. Pt later had additional 135 mL of bleeding noted on Chux and patient was also given TXA. Mother and baby to recover together. Stages of Labor Onset of Labor Date: 05/15/25 Complete Dilatation Date: 05/16/25 Complete Dilatation Time: 00:10 ROM Baby A: 05/15/25 ROM Baby A: 17:35 Delivery Date-Baby A: 05/16/25 Placenta Delivery Date-Baby A: 05/16/25 Placenta Cultured: No Placenta Status: Delivered Placenta Status: Delivered Baby A Infant Gender: Male Gestational Status: Term (39-41.6 wks) weight: 9 lb 13.3 oz Procedure Procedures: Control of Hemorrhage Interventions Oxygen , Indication: Late-term ./ Pain Management/ Induction Indication: Post Date, Type of Induction: Misoprostol administration: Vaginal, Pitocin and Cervical Ripening,/ Repair of Laceration Hemorrrhage Note Labs Drawn Labs Drawn: No
[2025-05-16] MEDS: TRANEXAMIC ACID/SOD. CHL. 1,000 MG/100 ML BAG 600 MG IVPB (05:05)
[2025-05-16] MEDS: Oxytocin/Normal Saline 30 UNIT/500 ML BAG 95 UNITS IV (05:20)
[2025-05-16] MEDS: Acetaminophen 325 MG TAB 650 MG PO ×2 (06:34→12:10)
[2025-05-16] MEDS: Ibuprofen 600 MG TAB PO (06:35)
[2025-05-16 07:09] LABS: HCT 32.1 % (36.0-46.0); HGB 10.9 g/dL (11.2-15.7); MCH 29.5 pg (27.0-33.0); MCHC 34.0 % (32.0-36.0); MCV 87 fL (80-95); MPV 10.5 fL (8.0-11.0); Platelet Count 210 10^3/uL (130-400); RBC 3.69 10^6/uL (3.93-5.22); RDW 12.7 % (11.7-14.6); RDW-SD 40.0 fL
[2025-05-16 07:25] LABS: WBC 25.24 10^3/uL (4.4-10.8)
[2025-05-16] MEDS: Lactated Ringers 1,000 ML 125 ML IV (10:07)
[2025-05-16] MEDS: miSOPROStol 200 MCG TAB 600 MCG SL ×2 (11:26→20:56)
--- NOTE | 2025-05-16 12:37 | W.PM.OBPNV1 ---
Date of service: 05/16/25 Time of Service: 12:37 Assessment and Plan Assessment and plan (1) Third degree laceration of perineum, type 3a: Status: Acute Assessment and plan: Pain relief is adequate. Consider sitz bath PRN after 24 hours. (2) History of hemorrhage: Status: Acute Assessment and plan: CBC with differential this evening (3) Term of male : Status: Acute Assessment and plan: Routine post care. Will continue to assess patient's status (4) Graves disease: Status: Acute Assessment and plan: Dose of levothyroxine decreased to 132 mcg daily per patient's request. This was advised by her photoengraving sketch maker. Subjective Subjective Interval history: status post hemorrhage. Yuridia has been resting and she took a nap this morning. She has been getting up to void hourly while awake and has been voiding without difficulty and is asymptomatic from blood loss. Bleeding is WNL, IV of LR 125 cc is infusing. is going well. Patient comments: No complaints Patient's Mood: good baby status: Doing well feeding status: Exclusively breast feeding Exam Physical Exam Vital signs: Temp Pulse Resp BP Pulse Ox 100.0 F H 89 14 131/71 98 05/16/25 12:00 05/16/25 12:00 05/16/25 12:00 05/16/25 12:00 05/16/25 07:45 Vital Signs Reviewed: Yes Constitutional Constitutional: no acute distress HEENT Exam HEENT Exam: Normal Respiratory Exam Respiratory Exam: Normal Cardiovascular Exam Cardiovascular Exam: Normal Extremities Exam Extremity Exam: Normal Skin Exam Skin Exam: Normal Psychiatric Exam Psychiatric Exam: Normal Results Hemoglobin/Hematocrit: Hgb 10.9 g/dL (11.2-15.7) L 05/16/25 07:00 Hct 32.1 % (36.0-46.0) L 05/16/25 07:00 Abnormal Lab Findings: Abnormal Labs 05/14/25 05/16/25 21:10 07:00 WBC 13.36 H 25.24 H* RBC 3.90 L 3.69 L Hgb 10.9 L Hct 34.1 L 32.1 L Hemorrrhage Note Labs Drawn Labs Drawn: No
[2025-05-16] MEDS: Dibucaine 1% 28 GM TUBE TP (17:41)
[2025-05-16] MEDS: Hamamelis Leaf/Glycerin 100 EACH BOX PR (17:42)
[2025-05-16 18:13] LABS: Abs Immature Grans 0.09 10^3/uL (0.0-0.06); HCT 24.7 % (36.0-46.0); HGB 8.5 g/dL (11.2-15.7); Immature Grans % 0.6 %; MCH 30.1 pg (27.0-33.0); MCHC 34.4 % (32.0-36.0); MCV 88 fL (80-95); MPV 10.4 fL (8.0-11.0); Platelet Count 192 10^3/uL (130-400); RBC 2.82 10^6/uL (3.93-5.22); RDW 12.9 % (11.7-14.6); RDW-SD 41.0 fL; WBC 15.75 10^3/uL (4.4-10.8)
[2025-05-16] MEDS: Docusate Sodium 100 MG CAP PO (20:56)
[2025-05-17 02:05] VITALS: BP 111/70; PULSE 79; RESP 18; TEMP 37.2
[2025-05-17 05:51] VITALS: BP 112/66; PULSE 85; RESP 18; TEMP 36.8
[2025-05-17] MEDS: Levothyroxine 88 MCG TAB 132 MCG PO (06:25)
[2025-05-17 06:59] LABS: Abs Immature Grans 0.08 10^3/uL (0.0-0.06); HCT 25.6 % (36.0-46.0); HGB 8.7 g/dL (11.2-15.7); Immature Grans % 0.6 %; MCH 30.6 pg (27.0-33.0); MCHC 34.0 % (32.0-36.0); MCV 90 fL (80-95); MPV 10.4 fL (8.0-11.0); Platelet Count 187 10^3/uL (130-400); RBC 2.84 10^6/uL (3.93-5.22); RDW 13.2 % (11.7-14.6); RDW-SD 43.1 fL; WBC 13.68 10^3/uL (4.4-10.8)
[2025-05-17] MEDS: Ibuprofen 600 MG TAB PO (08:21)
[2025-05-17] MEDS: Acetaminophen 325 MG TAB 650 MG PO (08:21)
[2025-05-17] MEDS: Docusate Sodium 100 MG CAP PO (08:21)
[2025-05-17 08:42] VITALS: BP 120/75; PULSE 65; RESP 18; TEMP 36.8; O2SAT 98
--- NOTE | 2025-05-17 10:13 | W.PM.OBPNV1 ---
Date of service: 05/17/25 Time of Service: 10:13 Assessment and Plan Assessment and plan (1) History of hemorrhage: Status: Acute Assessment and plan: Denies dizziness, resting pulse <100 (2) Third degree laceration of perineum, type 3a: Status: Acute Assessment and plan: intact, healing well (3) Term of male : Status: Acute Assessment and plan: A: PPD#1, nml recovery Hgb 8.7 this morning, WBC 13.68 Afebrile and resting pulse 70-80 well, processing experience P: Pt desires discharge to home today Recovery from lacerations and PPH/anemia discussed in detail Written instructions reviewed and given to pt Discussed non-hormonal BCM, pt undecided Will take iron supplement and consume iron & fiber rich foods, rest AMAP F/up in 2 & 6 wks , will check hgb in 2 wks Subjective Subjective Patient comments: No complaints, Pain well controlled, Tolerating diet and Bowel Movement Patient's Mood: happy baby status: Doing well, Nursing well and Rooming in [place] feeding status: Exclusively breast feeding Exam Physical Exam Vital signs: Temp Pulse Resp BP Pulse Ox 98.2 F 65 18 120/75 98 05/17/25 08:42 05/17/25 08:42 05/17/25 08:42 05/17/25 08:42 05/17/25 08:42 Vital Signs Reviewed: Yes Constitutional Constitutional: no acute distress, average body habitus and cooperative HEENT Exam HEENT Exam: Normal Neck Exam Neck Exam: Normal Breast Exam Bilateral: Breast Exam: Normal and Soft Nipple Exam: Normal and Uninjured Respiratory Exam Respiratory Exam: Normal Cardiovascular Exam Cardiovascular Exam: Normal Abdominal Exam Abdomen: Other (soft and nontender) Fundal Exam Fundus: Below Umbilicus and Firm Rectal Exam Rectal Exam: Hemmorhoids Exam Perineum: Edematous and Repair Intact Extremities Exam Extremity Exam: Normal, Full ROM and Warm to Touch Back/Spine/Pelvis Exam Back Exam: Normal Skin Exam Skin Exam: Normal Neurological Exam Neurological Exam: Normal Psychiatric Exam Psychiatric Exam: Normal Results Abnormal Lab Findings: Abnormal Labs 05/14/25 05/16/25 05/16/25 21:10 07:00 18:00 WBC 13.36 H 25.24 H* 15.75 H RBC 3.90 L 3.69 L 2.82 L Hgb 10.9 L 8.5 L D Hct 34.1 L 32.1 L 24.7 L Absolute Neutrophils 12.06 H Absolute Monocytes 1.24 H 05/17/25 06:40 WBC 13.68 H RBC 2.84 L Hgb 8.7 L Hct 25.6 L Absolute Neutrophils 9.67 H Absolute Monocytes 0.89 H Hemorrrhage Note Labs Drawn Labs Drawn: No
--- NOTE | 2025-05-17 10:19 | DSE_ITS ---
Date of service: 05/17/25 Time of Service: 10:19 DS: Diagnosis Discharge Diagnosis (1) History of hemorrhage: Status: Acute (2) Third degree laceration of perineum, type 3a: Status: Acute (3) Term of male : Status: Acute Discharge Plan Disposition Patient Disposition: Home Condition: Improving Discharge Details Reason For Visit: post dates Admit Date/Time: 05/14/25 18:11 Admit Provider: Mary Jane Norris Attending Provider: Mary Jane Norris Primary Care Provider: Unknown,Unknown Hospital Course Hospital Course: after SROM and unmedicated delivery, hemorrhage controlled with medications and 3rd degree laceration repaired by physician, pt has had a normal recovery and requests discharge to home on PPD#1, is asymptomatic of anemia, will f/up @ 2 and 6 wks . Home Meds and New Rx's Prescriptions: No Action prenat.vits,melisa,[id number] Tablet 1 tab PO DAILY cholecalciferol (vitamin D3) 25 mcg (1,000 unit) capsule 25 mcg PO DAILY pyridoxine (vitamin B6) [Vitamin B-6] 50 mg tablet 50 mg PO DAILY PRN levothyroxine [Unithroid] 88 mcg tablet 163.4 mcg PO DAILY Qty: 90 0RF Allergy Relief (loratadine) 10 mg capsule 10 mg PO DAILY PRN calcium carbonate [Tums] 200 mg calcium (500 mg) tablet,chewable 200 mg PO BID PRN Discharge Instructions Additional Instructions: Please keep in-person 2 and 6 week appointments with the midwives, call for any and all concerns Stand Alone Forms: BC Instructions, BC Post Vaginal Deliver Activity:: Activity as Tolerated Equipment/Supplies:: No Equipment Needed Diet:: Normal Diet OB:DS Summary Summary Vaginal Delivery Method: Spontaneaous Episiotomy Description: None Laceration Description: Perineal Laceration Extension: Third Degree Contraception Discussed Contraception Discussed: Yes Contraceptive Plan: Undecided, [place] Infant Gender-Baby A: Male weight: 9 lb 13.3 oz Status at Discharge Functional status at discharge: independent ambulation Overall status at discharge: patient is progressing back to baseline Mental Status: mental status grossly normal Speech and Movement: speech and movement normal and speech clear Mood: congruent mood Affect: normal affect Exam Physical Exam Vital signs: Temp Pulse Resp BP Pulse Ox 98.2 F 65 18 120/75 98 05/17/25 08:42 05/17/25 08:42 05/17/25 08:42 05/17/25 08:42 05/17/25 08:42 Vital Signs Reviewed: Yes Constitutional Constitutional: no acute distress, average body habitus and cooperative HEENT Exam HEENT Exam: Normal Neck Exam Neck Exam: Normal Breast Exam Bilateral: Breast Exam: Normal and Soft Respiratory Exam Respiratory Exam: Normal Cardiovascular Exam Cardiovascular Exam: Normal Abdominal Exam Abdomen: Other (soft and nontender) Fundal Exam Fundus: Below Umbilicus and Firm Rectal Exam Rectal Exam: Hemmorhoids Exam Perineum: Edematous and Repair Intact Extremities Exam Extremity Exam: Normal, Full ROM and Warm to Touch Back/Spine/Pelvis Exam Back Exam: Normal Skin Exam Skin Exam: Normal Neurological Exam Neurological Exam: Normal Psychiatric Exam Psychiatric Exam: Normal PFSH All Active Problems (Updated 05/17/25 @ 10:15 by Ghada Allred) Term of male (Acute) History of hemorrhage (Acute) Third degree laceration of perineum, type 3a (Acute) Repaired, usual fashion, Appropriate hemostasis and cosmetic effect. 05/16/25 Graves disease (Acute) Medical History (Updated 05/17/25 @ 10:15 by Ghada Allred) Encounter for induction of labor resulting from in-vitro fertilization day 5 embryo transfer date 08/19/24 ASCUS with positive high risk HPV 2018 NIL 2020 Surgical History H/O thyroidectomy History of surgical procedure on mouth 2010 Family History (Updated 10/19/24 @ 09:03 by Seema Bustamante CNM) Mother No problems noted. 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) [employer] ([employer]) Pets and animals: Yes Pets and animals: dog(s) Sexually active: Yes Do you think of yourself as: straight/heterosexual Current gender identity: female What type of physical activity do you participate in: regular exercise Duration: 15-30 minutes/day Frequency: 3-4 times per week Special sarah needs: No Agree to transfusion: No Seatbelt use: always Do you feel safe at home: Yes Victim of physical abuse: No Victim of emotional abuse: No Female Reproductive History Menstrual Duration of menses: 6-7 days control method: none History History 1 Para 0 Hx # Term Pregnancies 0 Multiple births 0 Hx # Pregnancies 0 Ectopic pregnancies 0 AB induced 0 Hx Number of Living Children 0 AB spontaneous 0 DS: Data Vitals/I&O Vitals and I&O: Vital Signs Temperature 98.2 F 05/17/25 08:42 Temperature Source Oral 05/17/25 08:42 Pulse 65 05/17/25 08:42 Pulse Rhythm Regular 05/17/25 08:42 Respiratory Rate 18 05/17/25 08:42 Blood Pressure 120/75 05/17/25 08:42 Blood Pressure Mean 90 05/17/25 08:42 Pulse Oximetry 98 05/17/25 08:42 Oxygen Delivery Method Room Air 05/15/25 20:00 Oxygen Flow Rate 0 05/15/25 20:00 Pain Level 8 05/16/25 12:10 Intake & Output 05/16/25 05/16/25 05/17/25 11:59 23:59 11:59 Intake Total 1000 / 1000 Output Total 3625 / 4625 1000 / 4625 Balance -2625 / -3625 -1000 / -3625 Intake: IV 1000 / 1000 Output: Urine 2000 / 3000 1000 / 3000 Blood 1625 / 1625 Other: Urine Color Bright Red Yellow Data Completed and Pending Labs on day of discharge: Labs from last 24 hours 05/17/25 05/16/25 05/16/25 06:40 18:00 08:04 WBC 13.68 H 15.75 H RBC 2.84 L 2.82 L Hgb 8.7 L 8.5 L D Hct 25.6 L 24.7 L MCV 90 88 MCH 30.6 30.1 MCHC 34.0 34.4 RDW 13.2 12.9 Plt Count 187 192 MPV 10.4 10.4 Immature Gran % 0.6 0.6 Neutrophils % 70.7 76.6 Lymphocytes % 21.1 14.5 Monocytes % 6.5 7.9 Eosinophils % 0.7 0.2 Basophils % 0.4 0.2 Nucleated RBC % 0.0 0.0 Absolute Neutrophils 9.67 H 12.06 H Absolute Lymphocytes 2.89 2.28 Absolute Monocytes 0.89 H 1.24 H Absolute Eosinophils 0.10 0.03 Absolute Basophils 0.05 0.03 Cord Blood ABO/Rh Cancelled Cord Bld BERRY Cancelled
== END 2025-05-17 13:15 | disposition home or self-care (01) | DRG 768 ==
PROVIDERS: Advanced Practice Midwife; Admitting Provider Advanced Practice Midwife; Visit Provider Advanced Practice Midwife
DX: O48.0 Post-term pregnancy (principal); Z37.0 Single live birth; O70.21 Third degree perineal laceration during delivery, IIIa; O72.1 Other immediate postpartum hemorrhage; O42.92 Full-term premature rupture of membranes, unspecified as to length of time between rupture and onset of labor; O99.824 Streptococcus B carrier state complicating childbirth; Z3A.41 41 weeks gestation of pregnancy; O99.284 Endocrine, nutritional and metabolic diseases complicating childbirth; E89.0 Postprocedural hypothyroidism; O69.81X0 Labor and delivery complicated by cord around neck, without compression, not applicable or unspecified
CPT/HCPCS: 59300; 36415; 85027; 86850; 86900; 86901; 59200; 85025; 86880; J2003; J2210; J2540; J3490